=== PATIENT | female | born 1965 | race Caucasian/White ===

== ENCOUNTER 2017-12-19 12:13 | Emergency (ER) | payer OTHER ==
[2017-12-19 12:22] VITALS: BP 114/59
--- NOTE | 2017-12-19 12:23 | UC ---
Hand/Wrist HPI - HPI Summary HPI Summary: Pt presents with growth to palmar aspect of left wrist. She first noticed this about 1 week ago. She is left handed and does a lot of writing/typing. Denies numbness/tingling, trauma, or hx of injury to this hand/wrist. - History Of Current Complaint Chief Complaint: UCLowerExtremity Stated Complaint: BUMP ON WRIST Time Seen by Provider: 12/19/17 12:23 Hx Obtained From: Patient Hx Last Menstrual Period: 2 months ago - it's been irregular d/t menopause Severity Initially: Mild Severity Currently: Mild Pain Intensity: 2 Pain Scale Used: 0-10 Numeric - Allergies/Home Medications Allergies/Adverse Reactions: Allergies Allergy/AdvReac Type Severity Reaction Status Date / Time No Known Allergies Allergy Verified 12/19/17 12:18 Home Medications: Home Medications Cyanocobalamin (Vitamin B-12) [Vitamin B-12] 1 tab PO DAILY 12/19/17 [History Confirmed 12/19/17] PMH/Surg Hx/FS Hx/Imm Hx Previously Healthy: Yes Endocrine History: Thyroid Disease - Surgical History Surgical History: Yes Surgery Procedure, Year, and Place: Thyroidectomy 2011 - Social History Alcohol Use: Weekly Substance Use Type: None Smoking Status (MU): Never Smoked Tobacco Review of Systems Constitutional: Negative Skin: Negative Respiratory: Negative Cardiovascular: Negative Motor: Negative Neurovascular: Negative Musculoskeletal: Other: - Pain left wrist Neurological: Negative Psychological: Negative All Other Systems Reviewed And Are Negative: Yes Physical Exam Triage Information Reviewed: Yes Appearance: Well-Appearing, No Pain Distress, Well-Nourished Vital Signs: Initial Vital Signs Temp 97.7 F 12/19/17 12:19 Pulse 72 12/19/17 12:19 Resp 18 12/19/17 12:19 BP 114/59 12/19/17 12:19 Pulse Ox 100 12/19/17 12:19 Neck: Positive: Supple, Nontender, No Lymphadenopathy Respiratory: Positive: Lungs clear, Normal breath sounds, No respiratory distress, No accessory muscle use Cardiovascular: Positive: RRR, No Murmur, Pulses Normal - Radial and ulnar Musculoskeletal: Positive: Strength Intact - Left wrist/hand, ROM Intact - Left wrist/hand, No Edema - Left wrist/hand, Other: - On the radial palmar aspect of the left wrist there is a 4mm nodule that is mildly TTP. Neurological: Positive: Alert, Other: - Sensations intact left hand and all fingers Psychological: Positive: Age Appropriate Behavior Skin: Negative: rashes Hand/Wrist Course/Dx - Course Course Of Treatment: Suspect ganglion cyst - Differential Dx/Diagnosis Provider Diagnoses: Left wrist ganglion cyst Discharge - Discharge Plan Condition: Stable Disposition: HOME Patient Education Materials: Ganglion Cysts (ED) Referrals: Nito Ames NP [Primary Care Provider] - Anel Miller MD [Medical Doctor] - As Soon As Possible Additional Instructions: If you develop a fever, shortness of breath, chest pain, new or worsening symptoms - please call your PCP or go to the ED. 1) Please call Dr. Miller at the number below to schedule an appointment regarding your wrist.
== END 2017-12-19 12:40 | disposition home or self-care (01) ==
LOC: UCEAST 12:13
DX: M67.432 Ganglion, left wrist (principal); E07.9 Disorder of thyroid, unspecified
CPT/HCPCS: 99211; G0463

== ENCOUNTER 2019-02-17 10:27 | Emergency (ER) | payer OTHER ==
[2019-02-17 10:37] VITALS: BP 111/72
--- NOTE | 2019-02-17 10:50 | UC ---
Respiratory Complaint HPI - HPI Summary HPI Summary: 53-year-old female presents with complaints of a persistent, nonproductive cough since 01/04/2019. Associated with mild nasal congestion and postnasal drip. States she has history of severe allergies when she was younger and feels this may be the cause of her symptoms. She has an with an marketing analytics manager scheduled for next week. She states the cough worsened overnight and she had a couple episodes of posttussive emesis because she was coughing so hard. She also reports feeling "wheezy" on occasion. No history of asthma. Denies fever , chills, ear pain, sore throat, chest pain, shortness of breath, abdominal pain , nausea, or diarrhea. - History of Current Complaint Chief Complaint: UCRespiratory Stated Complaint: COUGH Time Seen by Provider: 02/17/19 10:39 Hx Obtained From: Patient Hx Last Menstrual Period: 2 months ago - it's been irregular d/t menopause Pain Intensity: 0 - Allergies/Home Medications Allergies/Adverse Reactions: Allergies Allergy/AdvReac Type Severity Reaction Status Date / Time No Known Allergies Allergy Verified 02/17/19 10:36 Home Medications: Home Medications Cholecalciferol (Vitamin D3) [Vitamin D3] 1,000 unit PO 02/17/19 [History] Loratadine [Claritin 10 MG CAP] 10 mg PO 02/17/19 [History] PMH/Surg Hx/FS Hx/Imm Hx Endocrine History: Hypothyroidism Psychological History: Depression - Surgical History Surgical History: Yes Surgery Procedure, Year, and Place: Thyroidectomy 2011 - Family History Known Family History: Positive: Non-Contributory - Social History Occupation: Employed Full-time Lives: With Family Alcohol Use: Occasionally Substance Use Type: None Smoking Status (MU): Never Smoked Tobacco Review of Systems All Other Systems Reviewed And Are Negative: Yes Constitutional: Negative: Fever, Chills Skin: Negative: Rash Eyes: Negative: Drainage, Eye Redness ENT: Positive: Nasal Discharge, Sinus Congestion. Negative: Sore Throat, Ear Ache, Sinus Pain/Tenderness Respiratory: Positive: Cough. Negative: Shortness Of Breath Cardiovascular: Negative: Palpitations, Chest Pain Gastrointestinal: Positive: Vomiting - post-tussive. Negative: Abdominal Pain, Diarrhea, Nausea Genitourinary: Positive: Negative Musculoskeletal: Positive: Negative Neurological: Positive: Negative Is Patient Immunocompromised?: No Physical Exam - Summary Physical Exam Summary: GENERAL APPEARANCE: Well developed, well nourished, alert and cooperative, and appears to be in no acute distress. EYES: Conjunctiva clear. No drainage. EARS: External auditory canals and tympanic membranes clear, hearing grossly intact. NOSE: Mild nasal congestion with mucosal erythema and edema. No nasal discharge. THROAT: Pharyngeal cobblestoning. No tonsilar inflammation, swelling, exudate, or lesions. Uvula midline. Oral cavity normal. Teeth and gingiva in good general condition. NECK: Neck supple, non-tender without lymphadenopathy. CARDIAC: Normal S1 and S2. No S3, S4 or murmurs. Rhythm is regular. There is no peripheral edema, cyanosis or pallor. Extremities are warm and well perfused. Capillary refill is less than 2 seconds. Peripheral pulses intact. LUNGS: Clear to auscultation without rales, rhonchi, wheezing or diminished breath sounds. Dry, non-productive cough. ABDOMEN: Positive bowel sounds. Soft, nondistended, nontender. No guarding or rebound. No masses or hepatosplenomegally. MUSKULOSKELETAL: ROM intact to all extremities. No joint erythema or tenderness. Normal muscular development. Normal gait. SKIN: Skin normal color, texture and turgor with no lesions or eruptions. Triage Information Reviewed: Yes Vital Signs: Initial Vital Signs Temp 98.3 F 02/17/19 10:33 Pulse 68 02/17/19 10:33 Resp 18 02/17/19 10:33 BP 111/72 02/17/19 10:33 Pulse Ox 100 02/17/19 10:33 Vital Signs Reviewed: Yes Respiratory Course/Dx - Course Course Of Treatment: 53-year-old female presents with complaints of a persistent, nonproductive cough since 01/04/2019. Associated with mild nasal congestion and postnasal drip. States she has history of severe allergies when she was younger and feels this may be the cause of her symptoms. She has an with an marketing analytics manager scheduled for next week. She states the cough worsened overnight and she had a couple episodes of posttussive emesis because she was coughing so hard. She also reports feeling "wheezy" on occasion. No history of asthma. Denies fever , chills, ear pain, sore throat, chest pain, shortness of breath, abdominal pain , nausea, or diarrhea. Afebrile. Vital signs stable. Exam remarkable for mild nasal congestion with mucosal erythema and edema, pharyngeal cobblestoning , and a dry nonproductive cough. I'm recommending symptomatic treatment for postnasal drip including fluticasone nasal spray and continued use of an over- the-counter nondrowsy antihistamine. I will give her Tessalon Perles to use as needed for the cough and with her reports of some wheezing I will also provide her with an albuterol inhaler to use as needed. She is to keep her appointment with the marketing analytics manager as scheduled and follow-up with her primary care provider if symptoms do not improve. Anticipatory guidance and warning symptoms were reviewed with the patient. Verbalizes understanding and agrees with plan of care. - Differential Dx/Diagnosis Differential Diagnosis/HQI/PQRI: Bronchitis, Lower Resp Infection, Sinusitis, Other - Post-nasal drip, GERD Provider Diagnosis: Post-nasal drip, Persistent cough for 3 weeks or longer Discharge - Sign-Out/Discharge Documenting (check all that apply): Patient Departure All imaging exams completed and their final reports reviewed: No Studies - Discharge Plan Condition: Stable Disposition: HOME Prescriptions: Albuterol HFA INHALER* [Ventolin HFA Inhaler*] 2 puff INH Q4H PRN #1 mdi PRN Reason: Wheezing Benzonatate CAP* [Tessalon 100 MG CAP*] 100 mg PO TID PRN #30 cap PRN Reason: Cough Fluticasone NASAL SPRAY 50MCG* [Flonase NASAL SPRAY 50MCG*] 2 spray BOTH NARES DAILY #1 btl Patient Education Materials: Acute Bronchitis (ED), Postnasal Drip (DC) Referrals: Nito Ames NP [Primary Care Provider] - 5 Days Additional Instructions: Start fluticasone nasal spray 2 sprays each nostril once a day. Use Tessalon Perles 1 cap every 8 hours as needed for cough. May use albuterol inhaler 2 puffs every 4-6 hours as needed for wheezing or coughing fits. Keep your appointment with the marketing analytics manager as scheduled next week. Follow up with your primary care provider in 5-7 days if symptoms do not improve. Seek immediate medical attention in the emergency room if you have fever greater than 100.5 F despite taking acetaminophen or ibuprofen, have chest pain , difficulty breathing, or have any worsening of symptoms. - Billing Disposition and Condition Condition: STABLE Disposition: Home
== END 2019-02-17 11:13 | disposition home or self-care (01) ==
LOC: UCEAST 10:27
DX: R09.82 Postnasal drip (principal); R05 Cough; E03.9 Hypothyroidism, unspecified; F32.9 Major depressive disorder, single episode, unspecified
CPT/HCPCS: 99212; G0463